=== PATIENT | female | born 1960 | race Caucasian/White ===

== ENCOUNTER 2018-07-29 06:03 | Observation (INO) | payer BC, SELFPAY ==
[2018-07-29 06:04] VITALS: BP 167/88; PULSE 94; RESP 18; TEMP 36.6; O2SAT 97; BMI 27.4
--- NOTE | 2018-07-29 06:09 | ED.RN ---
CALLED FOR EKG PER RN REQUEST, NO OLD EKGS IN MUSE
--- NOTE | 2018-07-29 06:17 | RAD_ITS ---
STUDY: X-RAY CHEST REASON FOR EXAM: Female, 57 years old. Chest and shoulder pain radiating to jaw. TECHNIQUE: Single AP portable view of the chest. COMPARISON: None. FINDINGS: There are superimposed monitor leads. Mild linear horizontal basilar interstitial changes . There is no focal parenchymal abnormality. There is no demonstrated pleural abnormality. Normal size heart. Normal mediastinum and mary. Normal visualized pulmonary arteries. Normal visualized aortic arch and descending thoracic aorta. Normal visualized thoracic spine. Normal visualized ribs, clavicles, and shoulders. There is no demonstrated abnormality of the visualized soft tissue structures of the upper abdomen. RAD/Chest 1 View (Portable) IMPRESSION: No pulmonary edema, congestive heart failure or confluent pneumonia. Possible mild atelectasis in the bases. Electronically Signed: Lou Smallwood MD at 6:46 EST , Service support ,
--- NOTE | 2018-07-29 06:17 | EKG12_ITS ---
Test Reason : CHEST PAIN Blood Pressure : / mmHG Vent. Rate : 082 BPM Atrial Rate : 082 BPM P-R Int : 156 ms QRS Dur : 090 ms QT Int : 384 ms P-R-T Axes : 047 000 048 degrees QTc Int : 448 ms Normal sinus rhythm Possible Left atrial enlargement Borderline ECG Confirmed by MALKA CEJA, GITA ([id number]), newspaper copy editor DIPTI CERON ([id number]) on 07/30/2018 11:23:11 AM Referred By: JELANI Confirmed By:GITA ACE MD
[2018-07-29 06:26] LABS: Absolute Lymphocyte Count 2.92 X10^3/ul (0.83-4.51); Absolute Neutrophil Count 2.9 X10^3/uL (2.0-7.7); Basophil# 0.06 X10^3/uL; Basophil% 0.9 % (0-1); Eosinophil# 0.18 X10^3/uL; Eosinophils% 2.8 % (0-5); Hematocrit 42.1 % (37-47); Hemoglobin 14.2 g/dl (12.0-15.0); Lymphocyte # 2.92 X10^3/ul (4.0); Lymphocyte % 45.1 % (19-41); Mean Corp Hgb Conc 33.7 g/gl (32-36); Mean Corpuscular Hgb 30.3 pg (27.0-32.0); Mean Corpuscular Volume 89.8 fL (81-99); Mean Platelet Vol. 9.3 fl (6.2-12.0); Monocyte# 0.41 X10^3/uL; Monocyte% 6.3 % (0-10); Neutrophil % 44.7 % (47-70); Platelet Count 309 K/mm3 (150-450); RBC Distribution Width CV 12.4 % (11.6-14.6); RBC Distribution Width SD 40.3 fl (35.1-43.9); Red Blood Count 4.69 M/mm3 (4.2-5.4); White Blood Count 6.5 K/mm3 (4.4-11.0)
[2018-07-29 06:32] LABS: POSITIVE COUNT NO; POSITIVE DIFFERENTIAL NO; POSITIVE MORPHOLOGY NO
[2018-07-29 06:40] LABS: Anion Gap 10 (5-15); BUN 13 mg/dL (7-18); BUN/Creat Ratio 16.9 RATIO (10-20); Calcium,Total 8.5 mg/dL (8.5-10.1); Chloride 107 mmol/L (98-107); Creatinine, Serum 0.77 mg/dL (0.55-1.02); EST Glomerular Filtration Rate 82 mL/min (>60); Est Glom Filt Rate - Afr Amer 99 mL/min (>60); Estimated Creatinine Clearance 75.46 ml/min; Glucose 118 mg/dL (74-106); Potassium 3.6 mmol/L (3.5-5.1); Sodium Level 142 mmol/L (136-145)
--- NOTE | 2018-07-29 07:01 | ED.VISSUMM ---
- ER Visit Summary Date of Service: 07/29/18 Chief Complaint: Chest pain History of Present Illness: The patient is a 57 F with chest pain that started around 5 AM this morning. It woke her up from sleep. She felt a throbbing in her left upper chest and it radiated into her left neck and left shoulder blade. It was 7 out of 10 and is currently only mild. Nothing seemed to bring on or make it worse. Nothing seemed to make it better. She did take a full-strength aspirin. She has not been to a doctor for many years. She thinks she might have a history of high blood pressure but she is not treated. She does not smoke. She has a strong family history of myocardial infarction. Her grandfather had an WV at age 50 and her dad had an WV at the age of 67. She denies any history of venous thromboembolism or aortic disease. She has never had a stress test or cardiac catheterization. Physical Examination: Afebrile. Blood pressure 167/88. Otherwise vitals unremarkable. Alert and oriented. No acute distress. Skin normal in color without diaphoresis or pallor. Heart regular rate and rhythm. Lungs clear. Extremities nontender with no edema. Test Results: EKG shows sinus rhythm at a rate of 82. No signs of acute ischemia or infarction pattern. CBC normal. Glucose 118. Troponin normal. Chest x-ray showed nothing acute, but possible mild atelectasis at the bases. Emergency Department Course and Treatment: Patient was placed on the monitor. She did have aspirin prior to arrival. Her pain had subsided somewhat by the time she got to the emergency department. Her workup was fairly unremarkable. Patient has a moderately suspicious story. She has a strong family history for heart disease. She does not have personal risk factors, but also has not been to a physician for many years, and so it is difficult to risk stratify her. Given her concerning story and family history, I did contact the hospitalist for observation for chest pain. Treatment Plan: As above Disposition: Admission Impression: 1. Chest pain This note was generated with [employer] dictation software. It may contain incorrect words, spelling, and punctuation that were not noted in review of the chart prior to signing ED Disposition - Plan for ED Patient: Chief Complaint: Chest Pain Referrals: Darshana Espinal MD [Primary Care Provider] -
--- NOTE | 2018-07-29 07:05 | ED.DCSUM_ITS ---
- ER Visit Summary Date of Service: 07/29/18 Chief Complaint: Chest pain History of Present Illness: The patient is a 57 F with chest pain that started around 5 AM this morning. It woke her up from sleep. She felt a throbbing in her left upper chest and it radiated into her left neck and left shoulder blade. It was 7 out of 10 and is currently only mild. Nothing seemed to bring on or make it worse. Nothing seemed to make it better. She did take a full-strength aspirin. She has not been to a doctor for many years. She thinks she might have a history of high blood pressure but she is not treated. She does not smoke. She has a strong family history of myocardial infarction. Her grandfather had an AL at age 50 and her dad had an AL at the age of 67. She denies any history of venous thromboembolism or aortic disease. She has never had a stress test or cardiac catheterization. Physical Examination: Afebrile. Blood pressure 167/88. Otherwise vitals unremarkable. Alert and oriented. No acute distress. Skin normal in color without diaphoresis or pallor. Heart regular rate and rhythm. Lungs clear. Extremities nontender with no edema. Test Results: EKG shows sinus rhythm at a rate of 82. No signs of acute ischemia or infarction pattern. CBC normal. Glucose 118. Troponin normal. Chest x-ray showed nothing acute, but possible mild atelectasis at the bases. Emergency Department Course and Treatment: Patient was placed on the monitor. She did have aspirin prior to arrival. Her pain had subsided somewhat by the time she got to the emergency department. Her workup was fairly unremarkable. Patient has a moderately suspicious story. She has a strong family history for heart disease. She does not have personal risk factors, but also has not been to a physician for many years, and so it is difficult to risk stratify her. Given her concerning story and family history, I did contact the hospitalist for observation for chest pain. Treatment Plan: As above Disposition: Admission Impression: 1. Chest pain This note was generated with [employer] dictation software. It may contain incorrect words, spelling, and punctuation that were not noted in review of the chart prior to signing ED Disposition - Plan for ED Patient: Chief Complaint: Chest Pain Referrals: Darshana Espinal MD [Primary Care Provider] -
--- NOTE | 2018-07-29 07:11 | NURSING ---
DR DANIEL PALOMARES
--- NOTE | 2018-07-29 07:15 | NURSING ---
125 OBS CP DANIEL
--- NOTE | 2018-07-29 07:21 | NURSING ---
DR SANCHEZ IN PATIENT ROOM
--- NOTE | 2018-07-29 07:27 | PCM.HP.STD ---
Problem List (1) Chest pain Status: Acute (2) Elevated BP without diagnosis of hypertension Status: Acute History of Present Illness Date of Admission: 07/29/18 Chief Complaint: Neck and left shoulder pain The patient is a 57 year old F relatively good health with no medical comorbidities who presented with neck and left shoulder pain. Patient woke up suddenly on the morning of admission with feeling of her heart pounding. She felt his discomfort on the left side of her neck which later radiated down to her left shoulder. She took aspirin without much relief subsequently presented to the emergency department. Her initial set of cardiac enzymes and EKG came back remarkable given her presentation patient was admitted to a monitored bed for subsequent management. On further questioning patient denied any lightheadedness denied any shortness of breath no nausea no vomiting. Past Medical History Allergies Iodinated Contrast- Oral and IV Dye [CT] Allergy (Verified 07/29/18 06:04) Hives Home Medications: Ambulatory Orders Medication Instructions Recorded Ascorbic Acid [Vitamin C] 500 mg PO DAILY@0800 07/29/18 Zinc 50 mg PO DAILY 07/29/18 Smoking Status: Never smoker - *Family History Paternal History Items: Heart Disease Review of Systems Constitutional: Denies: Anorexia, Chills, Fever, Night Sweats, Weight Change HEENT: Denies: Head Aches, Sinus Congestion, Sinus Drainage Cardiovascular: Reports: Chest Pain, Palpitations. Denies: Orthopnea, Paroxysmal Noc. Dyspnea Respiratory: Denies: Cough, Shortness of breath at rest, Shortness of breath upon exertion, Sputum production Gastrointestinal: Denies: Abdominal Pain, Hematemesis, Hematochezia, Nausea, Melena, Vomiting Genitourinary: Denies: Dysuria, Frequency, Hematuria, Urgency Musculoskeletal: Denies: Joint Pain, Joint Tenderness Skin: Denies: Rash Neurological: Denies: Focal weakness, Numbness, Tingling Psychiatric: Denies: Homicidal Ideations, Suicidal Ideations Hematologic/ Lymphatic: Denies: Easy Bruising, Easy Bleeding VTE Information - Inpt Only VTE Present on Admission: No VTE Mechan Device Prophylaxis: Knee High YAZMIN Hose VTE Pharm Prophylaxis ordered?: Yes Patient Problems: Active and Suspected Problems Chest pain (Acute) Elevated BP without diagnosis of hypertension (Acute) Objective: GENERAL: cooperative HEENT: Atraumatic; moist oral mucosa EYES; Anicteric, Normal Conjunctiva NECK; supple, normal thyroid, no distended JVD. RESPIRATORY: Diminished to auscultation bilaterally, CARDIOVASCULAR: Regular S1 S2, no audible murmurs GI: soft, non-tender, normoactive bowel sounds, : No Renal angle tenderness; EXTREMITIES: No edema, no clubbing, no cyanosis. MUSCULOSKELETAL: No Joint Tenderness; no muscle waisting NEURO: Awake; no lateralizing signs. SKIN: No Rash PSYCH; Normal affect - Physical Exam Vital Signs Temp Pulse Resp BP Pulse Ox 97.9 F 94 18 167/88 H 97 07/29/18 06:04 07/29/18 06:04 07/29/18 06:04 07/29/18 06:04 07/29/18 06:04 Oxygen Delivery Method Room Air Weight: 77.111 kg Body Mass Index (BMI) 27.4 Laboratory Tests Past 24 Hrs 07/29/18 07/29/18 06:15 06:15 WBC 6.5 RBC 4.69 Hgb 14.2 Hct 42.1 MCV 89.8 MCH 30.3 MCHC 33.7 RDW 12.4 RDW Differential 40.3 Plt Count 309 MPV 9.3 Immature Gran % (Auto) 0.200 Neut % (Auto) 44.7 L Lymph % (Auto) 45.1 H [place] % (Auto) 6.3 Eos % (Auto) 2.8 Baso % (Auto) 0.9 Absolute Neuts (auto) 2.9 Absolute Lymphs (auto) 2.92 Total Counted Not Reportable Sodium 142 Potassium 3.6 Chloride 107 Carbon Dioxide 25.0 Anion Gap 10 BUN 13 Creatinine 0.77 Estim Creat Clear Calc 75.46 Est GFR (MDRD) Af Amer 99 Est GFR (MDRD) Non-Af 82 BUN/Creatinine Ratio 16.9 Glucose 118 H Calcium 8.5 Troponin I < 0.015 Assessment/Plan All Active Problems Chest pain (Acute) Elevated BP without diagnosis of hypertension (Acute) Patient is a 57-year-old lady presented with neck pain and left shoulder discomfort 1. 1 atypical chest pain: Admitted to monitored bed plan is rule out SD with serial cardiac enzymes patient undergo a nuclear stress test if SD is ruled out 2. Elevated blood pressure without diagnosis of attention: Patient has been admitted to monitored bed with her blood pressure is currently being monitored closely 3. History of hysterectomy 4. DVT prophylaxis SC Lovenox. Code Visit OBSV E&M: 27367 Initial observation care L3
--- NOTE | 2018-07-29 07:32 | HP.PCM_ITS ---
Problem List (1) Chest pain Status: Acute (2) Elevated BP without diagnosis of hypertension Status: Acute History of Present Illness Date of Admission: 07/29/18 Chief Complaint: Neck and left shoulder pain The patient is a 57 year old F relatively good health with no medical comorbidities who presented with neck and left shoulder pain. Patient woke up suddenly on the morning of admission with feeling of her heart pounding. She felt his discomfort on the left side of her neck which later radiated down to her left shoulder. She took aspirin without much relief subsequently presented to the emergency department. Her initial set of cardiac enzymes and EKG came back remarkable given her presentation patient was admitted to a monitored bed for subsequent management. On further questioning patient denied any light headedness denied any shortness of breath no nausea no vomiting. Past Medical History Allergies Iodinated Contrast- Oral and IV Dye [CT] Allergy (Verified 07/29/18 06:04) Hives Home Medications: Ambulatory Orders Medication Instructions Recorded Ascorbic Acid [Vitamin C] 500 mg PO DAILY@0800 07/29/18 Zinc 50 mg PO DAILY 07/29/18 Smoking Status: Never smoker - *Family History Paternal History Items: Heart Disease Review of Systems Constitutional: Denies: Anorexia, Chills, Fever, Night Sweats, Weight Change HEENT: Denies: Head Aches, Sinus Congestion, Sinus Drainage Cardiovascular: Reports: Chest Pain, Palpitations. Denies: Orthopnea, Paroxysmal Noc. Dyspnea Respiratory: Denies: Cough, Shortness of breath at rest, Shortness of breath upon exertion, Sputum production Gastrointestinal: Denies: Abdominal Pain, Hematemesis, Hematochezia, Nausea, Melena, Vomiting Genitourinary: Denies: Dysuria, Frequency, Hematuria, Urgency Musculoskeletal: Denies: Joint Pain, Joint Tenderness Skin: Denies: Rash Neurological: Denies: Focal weakness, Numbness, Tingling Psychiatric: Denies: Homicidal Ideations, Suicidal Ideations Hematologic/ Lymphatic: Denies: Easy Bruising, Easy Bleeding VTE Information - Inpt Only VTE Present on Admission: No VTE Mechan Device Prophylaxis: Knee High YAZMIN Hose VTE Pharm Prophylaxis ordered?: Yes Patient Problems: Active and Suspected Problems Chest pain (Acute) Elevated BP without diagnosis of hypertension (Acute) Objective: GENERAL: cooperative HEENT: Atraumatic; moist oral mucosa EYES; Anicteric, Normal Conjunctiva NECK; supple, normal thyroid, no distended JVD. RESPIRATORY: Diminished to auscultation bilaterally, CARDIOVASCULAR: Regular S1 S2, no audible murmurs GI: soft, non-tender, normoactive bowel sounds, : No Renal angle tenderness; EXTREMITIES: No edema, no clubbing, no cyanosis. MUSCULOSKELETAL: No Joint Tenderness; no muscle waisting NEURO: Awake; no lateralizing signs. SKIN: No Rash PSYCH; Normal affect - Physical Exam Vital Signs Temp Pulse Resp BP Pulse Ox 97.9 F 94 18 167/88 H 97 07/29/18 06:04 07/29/18 06:04 07/29/18 06:04 07/29/18 06:04 07/29/18 06:04 Oxygen Delivery Method Room Air Weight: 77.111 kg Body Mass Index (BMI) 27.4 Laboratory Tests Past 24 Hrs 07/29/18 07/29/18 06:15 06:15 WBC 6.5 RBC 4.69 Hgb 14.2 Hct 42.1 MCV 89.8 MCH 30.3 MCHC 33.7 RDW 12.4 RDW Differential 40.3 Plt Count 309 MPV 9.3 Immature Gran % (Auto) 0.200 Neut % (Auto) 44.7 L Lymph % (Auto) 45.1 H Coal % (Auto) 6.3 Eos % (Auto) 2.8 Baso % (Auto) 0.9 Absolute Neuts (auto) 2.9 Absolute Lymphs (auto) 2.92 Total Counted Not Reportable Sodium 142 Potassium 3.6 Chloride 107 Carbon Dioxide 25.0 Anion Gap 10 BUN 13 Creatinine 0.77 Estim Creat Clear Calc 75.46 Est GFR (MDRD) Af Amer 99 Est GFR (MDRD) Non-Af 82 BUN/Creatinine Ratio 16.9 Glucose 118 H Calcium 8.5 Troponin I < 0.015 Assessment/Plan All Active Problems Chest pain (Acute) Elevated BP without diagnosis of hypertension (Acute) Patient is a 57-year-old lady presented with neck pain and left shoulder discomfort 1. 1 atypical chest pain: Admitted to monitored bed plan is rule out NV with serial cardiac enzymes patient undergo a nuclear stress test if NV is ruled out 2. Elevated blood pressure without diagnosis of attention: Patient has been admitted to monitored bed with her blood pressure is currently being monitored closely 3. History of hysterectomy 4. DVT prophylaxis SC Lovenox. Code Visit OBSV E&M: 53479 Initial observation care L3
--- NOTE | 2018-07-29 08:09 | ECHOD_ITS ---
Reason For Study: CHEST PAIN Procedure This was a 2D Doppler, Color Flow transthoracic echocardiogram. Exam performed portable in patient room. Left Ventricle Normal LV size. Left ventricular systolic function is normal. The estimated ejection fraction is 70 %. Stage 1 diastolic dysfunction. No regional wall motion abnormalities noted. Right Ventricle Normal RV size. Normal systolic function. Atria Normal left atrium. Normal right atrium. Bubble contrast study negative for right to left interatrial shunt. Mitral Valve Normal mitral valve. Tricuspid Valve Normal tricuspid valve. Aortic Valve Normal aortic valve. Trisinus/trileaflet aortic valve. Pulmonic Valve Normal pulmonic valve. Great Vessels Normal aortic root. The pulmonary artery is normal size. Normal inferior vena cava. Pericardium/Pleural No pericardial effusion. Medication Performed a rapid injection of agitated mix of 9 cc saline and 1cc air to assess for atrial septal defect. MMode/2D Measurements & Calculations LVIDd: 4.2 cm IVSd: 1.2 cm Ao root diam: 3.3 cm LVIDs: 2.9 cm LVPWd: 1.1 cm RVDd: 3.3 cm FS: 31.9 % LAV(MOD-bp): 45.7 ml LA A4 area: 15.2 cm2 LA dimension(2D): 3.7 cm LAV(MOD-bp) Indexed: 24.5 ml/m2 LAV(MOD-sp2): 50.4 ml LAV(MOD-sp4): 38.6 ml RA A4 area: 15.0 cm2 Time Measurements MV dec time: 0.22 sec Doppler Measurements & Calculations MV E max torrey: 72.2 cm/sec Lat Peak E' Torrey: 12.0 cm/sec Med Peak E' Torrey: 9.1 cm/sec MV A max torrey: 92.5 cm/sec E/E' lat: 6.0 E/E' med: 7.9 MV E/A: 0.78 Ao V2 max: 166.0 cm/sec LV V1 max: 148.2 cm/sec PA V2 max: 114.4 cm/sec Ao max P.0 mmHg LV V1 max P.8 mmHg Interpretation Summary Normal LV size. Left ventricular systolic function is normal. The estimated ejection fraction is 70 %. Stage 1 diastolic dysfunction. Bubble contrast study negative for right to left interatrial shunt. Ordering Physician: Adilson Sanz Referring Physician: Darshana Espinal Performed By: Itzel Jiménez, ROB, RVT
[2018-07-29 08:17] VITALS: BMI 27.6
[2018-07-29 08:29] VITALS: BMI 27.7
[2018-07-29 08:40] VITALS: BP 132/79; PULSE 83; RESP 14; TEMP 37.2; O2SAT 96
[2018-07-29 08:42] VITALS: PULSE 80
[2018-07-29 09:05] LABS: D-Dimer Quantitative (DVT/PE) < 0.27 FEU/ug/m (0.27-0.49)
[2018-07-29 09:09] LABS: AST(SGOT) 22 U/L (15-37); Alanine Aminotransfer ALT/SGPT 39 U/L (13-56); Albumin, Serum 3.8 g/dL (3.2-5.0); Alkaline Phosphatase 84 U/L (45-117); Bilirubin, Direct 0.11 mg/dL (0.00-0.30); Cholesterol 254 mg/dL (200); High Density Lipoprotein 53 mg/dL; Protein, Total 7.8 g/dL (6.4-8.2); Thyroid Stim Hormone (TSH) 3.15 uIU/mL (0.358-3.74); Triglycerides 108 mg/dL; Very Low Density Lipoprotein 22 mg/dL (5-40)
[2018-07-29 13:18] VITALS: PULSE 80
[2018-07-29 14:53] VITALS: BP 121/78; PULSE 75; RESP 12; TEMP 37.3; O2SAT 98
[2018-07-29 15:25] VITALS: PULSE 80
--- NOTE | 2018-07-29 15:28 | STRESSREP_ITS ---
Stress Test Report Exercise myocardial perfusion stress test. 57-year-old lady with a history of chest pain. Stress protocol: Resting EKG demonstrates normal sinus rhythm with a rate of 98/min normal intervals are noted resting blood pressure 142/80 mmHg. The patient exercised according to the regular [facility] protocol for total duration of 5 minutes. The maximum heart rate attained was 171 bpm which was 104% of maximum predicted heart rate the maximum workload attained was 7 metabolic equivalents. At rest there were no ST or T wave changes noted suggest ischemia peak exercise upsloping ST changes were noted with normally the criteria for ischemia. No clinical angina was noted. The resting blood pressure 142/80 mmHg with a peak blood pressure 204/80 mmHg. Rate pressure product was 34,800. The test was terminated due to leg fatigue. Myocardial perfusion protocol. 11.5 mCi of technetium 99m sestamibi was injected at rest. The patient exerc ised according to regular [facility] protocol for total duration of 5 minutes at peak exercise 33.2 mCi of technetium 99m sestamibi was injected stress images were obtained stress and rest images were reconstructed and compared in the short axis vertical long and horizontal long axis. Gated images were also obtained Diffusion SPECT analysis: Review of the stress images demonstrate normal uptake of tracer noted in all areas of the myocardium. The resting images similarly demonstrated normal uptake of tracer noted in all areas of the myocardium. No areas of reversibility were noted suggest ischemia. Gated SPECT analysis. Next the gated ejection fraction was noted to be 82%. Conclusion: Normal exercise myocardial perfusion stress test at a moderate workload. Preserved ejection fraction.
--- NOTE | 2018-07-29 15:57 | DS.PCM_ITS ---
Discharge Date and Diagnosis - Problem List Patient Problems: Active and Suspected Problems Chest pain (Acute) Elevated BP without diagnosis of hypertension (Acute) Date of Admission: 07/29/18 - Primary Discharge Diagnosis Active and Suspected Problems Chest pain (Acute) Elevated BP without diagnosis of hypertension (Acute) Hospital Course and Treatment Imaging Results: 07/29/18 08:09 Echo Complete [ECHO] Routine Nuclear Stress Test - Treadmil [NM] Routine Summary of Care Provided: The patient is a 57 year old F [] Patient Problems: Active and Suspected Problems Chest pain (Acute) Elevated BP without diagnosis of hypertension (Acute) - Physical Exam Vital Signs Temp Pulse Resp BP Pulse Ox 99.2 F H 80 12 121/78 H 98 07/29/18 14:53 07/29/18 15:25 07/29/18 14:53 07/29/18 14:53 07/29/18 14:53 Oxygen Delivery Method Room Air Weight: 77.8 kg Body Mass Index (BMI) 27.6 Laboratory Tests Past 24 Hrs 07/29/18 07/29/18 07/29/18 06:15 06:15 06:15 WBC 6.5 RBC 4.69 Hgb 14.2 Hct 42.1 MCV 89.8 MCH 30.3 MCHC 33.7 RDW 12.4 RDW Differential 40.3 Plt Count 309 MPV 9.3 Immature Gran % (Auto) 0.200 Neut % (Auto) 44.7 L Lymph % (Auto) 45.1 H [place] % (Auto) 6.3 Eos % (Auto) 2.8 Baso % (Auto) 0.9 Absolute Neuts (auto) 2.9 Absolute Lymphs (auto) 2.92 Total Counted Not Reportable D-Dimer Quant (PE/DVT) < 0.27 L Sodium 142 Potassium 3.6 Chloride 107 Carbon Dioxide 25.0 Anion Gap 10 BUN 13 Creatinine 0.77 Estim Creat Clear Calc 75.46 Est GFR (MDRD) Af Amer 99 Est GFR (MDRD) Non-Af 82 BUN/Creatinine Ratio 16.9 Glucose 118 H Calcium 8.5 Total Bilirubin Direct Bilirubin AST ALT Alkaline Phosphatase Troponin I < 0.015 Total Protein Albumin Globulin Triglycerides Cholesterol LDL Cholesterol VLDL Cholesterol HDL Cholesterol TSH 07/29/18 07/29/18 07/29/18 06:15 09:06 12:10 WBC RBC Hgb Hct MCV MCH MCHC RDW RDW Differential Plt Count MPV Immature Gran % (Auto) Neut % (Auto) Lymph % (Auto) [place] % (Auto) Eos % (Auto) Baso % (Auto) Absolute Neuts (auto) Absolute Lymphs (auto) Total Counted D-Dimer Quant (PE/DVT) Sodium Potassium Chloride Carbon Dioxide Anion Gap BUN Creatinine Estim Creat Clear Calc Est GFR (MDRD) Af Amer Est GFR (MDRD) Non-Af BUN/Creatinine Ratio Glucose Calcium Total Bilirubin 0.50 Direct Bilirubin 0.11 AST 22 ALT 39 Alkaline Phosphatase 84 Troponin I < 0.015 < 0.015 Total Protein 7.8 Albumin 3.8 Globulin 4.0 Triglycerides 108 Cholesterol 254 H LDL Cholesterol 179 H VLDL Cholesterol 22 HDL Cholesterol 53 TSH 3.15 Home Medications: Medications to take at Discharge Amlodipine [Norvasc] 5 mg PO DAILY #60 tablet 07/29/18 Ascorbic Acid [Vitamin C] 500 mg PO DAILY@0800 07/29/18 Atorvastatin Calcium [Lipitor] 40 mg PO DAILY #60 tablet 07/29/18 Mv-Mn/Folic Acid/Calcium/Vit K [Women's 50 Plus Daily Formula] 1 each PO DAILY 07/29/18 Zinc 50 mg PO DAILY 07/29/18 Following Prescrptions Were Given to Patient: Amlodipine [Norvasc] 5 mg PO DAILY #60 tablet Atorvastatin Calcium [Lipitor] 40 mg PO DAILY #60 tablet Primary Care Physician: Darshana Espinal MD [Primary Care Provider] - Medical Necessity - Tobacco Use Smoking Status: Never smoker
--- NOTE | 2018-07-29 15:58 | DCINST_ITS ---
- Discharge Diagnoses Current Active Problems: Current Active and Chronic Problems Chest pain (Acute) Elevated BP without diagnosis of hypertension (Acute) You will use the following diet at home:: Cardiac Instructions: ED Chest Pain NonCardiac Allergies/Adverse Reactions: Allergies Iodinated Contrast- Oral and IV Dye [CT] Allergy (Verified 07/29/18 06:04) Hives Medications to take at Discharge Amlodipine [Norvasc] 5 mg PO DAILY #60 tablet 07/29/18 Ascorbic Acid [Vitamin C] 500 mg PO DAILY@0800 07/29/18 Atorvastatin Calcium [Lipitor] 40 mg PO DAILY #60 tablet 07/29/18 Mv-Mn/Folic Acid/Calcium/Vit K [Women's 50 Plus Daily Formula] 1 each PO DAILY 07/29/18 Zinc 50 mg PO DAILY 07/29/18 The following prescriptions were given: Amlodipine [Norvasc] 5 mg PO DAILY #60 tablet Atorvastatin Calcium [Lipitor] 40 mg PO DAILY #60 tablet Primary Care Physician: Darshana Espinal MD [Primary Care Provider] - Please follow up with your Primary Care Physician in: in 1-2 weeks Test Results: Test results from this visit will be discussed in further detail at your follow- up appointment, if applicable. Proposed Discharge Date: 07/29/18
--- NOTE | 2018-07-29 16:01 | DS.PCM_ITS ---
Discharge Date and Diagnosis - Problem List Patient Problems: Active and Suspected Problems Chest pain (Acute) Elevated BP without diagnosis of hypertension (Acute) Date of Admission: 07/29/18 Date of Discharge: 07/29/18 - Primary Discharge Diagnosis Active and Suspected Problems Chest pain (Acute) Elevated BP without diagnosis of hypertension (Acute) - Secondary Discharge Diagnosis Essential hypertension Dyslipidemia History of hysterectomy Hospital Course and Treatment Imaging Results: 07/29/18 08:09 Echo Complete [ECHO] Routine Nuclear Stress Test - Treadmil [NM] Routine Laboratory Tests 07/29/18 07/29/18 07/29/18 Range/Units 12:10 09:06 06:15 WBC (4.4-11.0) K/mm3 RBC (4.2-5.4) M/mm3 Hgb (12.0-15.0) g/dl Hct (37-47) % MCV (81-99) fL MCH (27.0-32.0) pg MCHC (32-36) g/gl RDW (11.6-14.6) % RDW Differential (35.1-43.9) fl Plt Count (150-450) K/mm3 MPV (6.2-12.0) fl Immature Gran % (Auto) (0.0-0.9) % Neut % (Auto) (47-70) % Lymph % (Auto) (19-41) % [place] % (Auto) (0-10) % Eos % (Auto) (0-5) % Baso % (Auto) (0-1) % Absolute Neuts (auto) (2.0-7.7) X10^3/uL Absolute Lymphs (auto) (0.83-4.51) X10^3/ul Total Counted D-Dimer Quant (PE/DVT) (0.27-0.49) FEU/ug/m Sodium (136-145) mmol/L Potassium (3.5-5.1) mmol/L Chloride (98-107) mmol/L Carbon Dioxide (21.0-32.0) mmol/L Anion Gap (5-15) BUN (7-18) mg/dL Creatinine (0.55-1.02) mg/dL Estim Creat Clear Calc ml/min Est GFR (MDRD) Af Amer (>60) mL/min Est GFR (MDRD) Non-Af (>60) mL/min BUN/Creatinine Ratio (10-20) RATIO Glucose (74-106) mg/dL Calcium (8.5-10.1) mg/dL Total Bilirubin 0.50 (0.20-1.00) mg/dL Direct Bilirubin 0.11 (0.00-0.30) mg/dL AST 22 (15-37) U/L ALT 39 (13-56) U/L Alkaline Phosphatase 84 (45-117) U/L Troponin I < 0.015 < 0.015 (<0.045) ng/mL Total Protein 7.8 (6.4-8.2) g/dL Albumin 3.8 (3.2-5.0) g/dL Globulin 4.0 (2.2-4.2) g/dL Triglycerides 108 ( - 199) mg/dL Cholesterol 254 H (200) mg/dL LDL Cholesterol 179 H (0-130) mg/dL VLDL Cholesterol 22 (5-40) mg/dL HDL Cholesterol 53 (40 - ) mg/dL TSH 3.15 (0.358-3.74) uIU/mL 07/29/18 07/29/18 07/29/18 Range/Units 06:15 06:15 06:15 WBC 6.5 (4.4-11.0) K/mm3 RBC 4.69 (4.2-5.4) M/mm3 Hgb 14.2 (12.0-15.0) g/dl Hct 42.1 (37-47) % MCV 89.8 (81-99) fL MCH 30.3 (27.0-32.0) pg MCHC 33.7 (32-36) g/gl RDW 12.4 (11.6-14.6) % RDW Differential 40.3 (35.1-43.9) fl Plt Count 309 (150-450) K/mm3 MPV 9.3 (6.2-12.0) fl Immature Gran % (Auto) 0.200 (0.0-0.9) % Neut % (Auto) 44.7 L (47-70) % Lymph % (Auto) 45.1 H (19-41) % [place] % (Auto) 6.3 (0-10) % Eos % (Auto) 2.8 (0-5) % Baso % (Auto) 0.9 (0-1) % Absolute Neuts (auto) 2.9 (2.0-7.7) X10^3/uL Absolute Lymphs (auto) 2.92 (0.83-4.51) X10^3/ul Total Counted Not Reportable D-Dimer Quant (PE/DVT) < 0.27 L (0.27-0.49) FEU/ug/m Sodium 142 (136-145) mmol/L Potassium 3.6 (3.5-5.1) mmol/L Chloride 107 (98-107) mmol/L Carbon Dioxide 25.0 (21.0-32.0) mmol/L Anion Gap 10 (5-15) BUN 13 (7-18) mg/dL Creatinine 0.77 (0.55-1.02) mg/dL Estim Creat Clear Calc 75.46 ml/min Est GFR (MDRD) Af Amer 99 (>60) mL/min Est GFR (MDRD) Non-Af 82 (>60) mL/min BUN/Creatinine Ratio 16.9 (10-20) RATIO Glucose 118 H (74-106) mg/dL Calcium 8.5 (8.5-10.1) mg/dL Total Bilirubin (0.20-1.00) mg/dL Direct Bilirubin (0.00-0.30) mg/dL AST (15-37) U/L ALT (13-56) U/L Alkaline Phosphatase (45-117) U/L Troponin I < 0.015 (<0.045) ng/mL Total Protein (6.4-8.2) g/dL Albumin (3.2-5.0) g/dL Globulin (2.2-4.2) g/dL Triglycerides ( - 199) mg/dL Cholesterol (200) mg/dL LDL Cholesterol (0-130) mg/dL VLDL Cholesterol (5-40) mg/dL HDL Cholesterol (40 - ) mg/dL TSH (0.358-3.74) uIU/mL Summary of Care Provided: Patient is a 57-year-old lady presented with neck pain and left shoulder discomfort 1. Atypical chest pain: Admitted to monitored bed plan did rule out OR with serial cardiac enzymes patient subsequently underwent a nuclear stress test which was negative for stress-induced ischemia 2. Hypertension: Newly diagnosed patient was discharged home on amlodipine 5 mg daily 3. Dyslipidemia: New diagnosis; prescription was written 10 4 Lipitor 40 mg daily patient was encouraged was counseled on lifestyle modification including exercise and diet 4. History of hysterectomy 5. DVT prophylaxis SC Lovenox. Patient Problems: Active and Suspected Problems Chest pain (Acute) Elevated BP without diagnosis of hypertension (Acute) - Physical Exam General: Alert HEENT: Atraumatic Oral: Moist Mucosa Neck: No JVD Cardiovascular: Regular rate Neurological: Neuro grossly intact Vital Signs Temp Pulse Resp BP Pulse Ox 99.2 F H 80 12 121/78 H 98 07/29/18 14:53 07/29/18 15:25 07/29/18 14:53 07/29/18 14:53 07/29/18 14:53 Oxygen Delivery Method Room Air Weight: 77.8 kg Body Mass Index (BMI) 27.6 Laboratory Tests Past 24 Hrs 07/29/18 07/29/18 07/29/18 06:15 06:15 06:15 WBC 6.5 RBC 4.69 Hgb 14.2 Hct 42.1 MCV 89.8 MCH 30.3 MCHC 33.7 RDW 12.4 RDW Differential 40.3 Plt Count 309 MPV 9.3 Immature Gran % (Auto) 0.200 Neut % (Auto) 44.7 L Lymph % (Auto) 45.1 H [place] % (Auto) 6.3 Eos % (Auto) 2.8 Baso % (Auto) 0.9 Absolute Neuts (auto) 2.9 Absolute Lymphs (auto) 2.92 Total Counted Not Reportable D-Dimer Quant (PE/DVT) < 0.27 L Sodium 142 Potassium 3.6 Chloride 107 Carbon Dioxide 25.0 Anion Gap 10 BUN 13 Creatinine 0.77 Estim Creat Clear Calc 75.46 Est GFR (MDRD) Af Amer 99 Est GFR (MDRD) Non-Af 82 BUN/Creatinine Ratio 16.9 Glucose 118 H Calcium 8.5 Total Bilirubin Direct Bilirubin AST ALT Alkaline Phosphatase Troponin I < 0.015 Total Protein Albumin Globulin Triglycerides Cholesterol LDL Cholesterol VLDL Cholesterol HDL Cholesterol TSH 07/29/18 07/29/18 07/29/18 06:15 09:06 12:10 WBC RBC Hgb Hct MCV MCH MCHC RDW RDW Differential Plt Count MPV Immature Gran % (Auto) Neut % (Auto) Lymph % (Auto) [place] % (Auto) Eos % (Auto) Baso % (Auto) Absolute Neuts (auto) Absolute Lymphs (auto) Total Counted D-Dimer Quant (PE/DVT) Sodium Potassium Chloride Carbon Dioxide Anion Gap BUN Creatinine Estim Creat Clear Calc Est GFR (MDRD) Af Amer Est GFR (MDRD) Non-Af BUN/Creatinine Ratio Glucose Calcium Total Bilirubin 0.50 Direct Bilirubin 0.11 AST 22 ALT 39 Alkaline Phosphatase 84 Troponin I < 0.015 < 0.015 Total Protein 7.8 Albumin 3.8 Globulin 4.0 Triglycerides 108 Cholesterol 254 H LDL Cholesterol 179 H VLDL Cholesterol 22 HDL Cholesterol 53 TSH 3.15 Discharge Diet: Low fat/ Low Cholesterol Home Medications: Medications to take at Discharge Amlodipine [Norvasc] 5 mg PO DAILY #60 tablet 07/29/18 Ascorbic Acid [Vitamin C] 500 mg PO DAILY@0800 07/29/18 Atorvastatin Calcium [Lipitor] 40 mg PO DAILY #60 tablet 07/29/18 Mv-Mn/Folic Acid/Calcium/Vit K [Women's 50 Plus Daily Formula] 1 each PO DAILY 07/29/18 Zinc 50 mg PO DAILY 07/29/18 Following Prescrptions Were Given to Patient: Amlodipine [Norvasc] 5 mg PO DAILY #60 tablet Atorvastatin Calcium [Lipitor] 40 mg PO DAILY #60 tablet Primary Care Physician: Darshana Espinal MD [Primary Care Provider] - Please follow up with your Primary Care Physician in: in 1-2 weeks Patient Instructions: ED Chest Pain NonCardiac Disposition: Home Minutes spent on discharge:: 45 Patient Condition:: Stable Medical Necessity - Tobacco Use Smoking Status: Never smoker Meaningful Use Info Meaningful Use Diagnoses (Choose all that apply): None applicable Code Visit OBSV E&M: 04121 Observ/hosp same date L3
== END 2018-07-29 15:58 | disposition home or self-care (01) ==
LOC: ED 06:29 → PCU 07:20
PROVIDERS: Admitting Provider Internal Medicine; Emergency Provider Emergency Medicine; Family Provider Family Medicine; PCP Family Medicine; Visit Provider Internal Medicine
DX: R07.89 Other chest pain (principal); Z82.49 Family history of ischemic heart disease and other diseases of the circulatory system; M54.2 Cervicalgia; M25.512 Pain in left shoulder; E78.5 Hyperlipidemia, unspecified; I10 Essential (primary) hypertension
CPT/HCPCS: 36415; 71045; 78452; 80048; 80061; 80076; 84443; 84484; 85025; 85379; 93005; 93017; 93306; 99218; 99251; 99284; A9500; A4216; G0378; G0463

== ENCOUNTER → 2018-09-23 08:18 | Outpatient (CLI) | payer BC, SELFPAY ==
--- NOTE | 2018-09-23 08:21 | BI_ITS ---
MAMMOGRAPHY - BILATERAL SCREENING REASON FOR EXAM: Female, 57 years old. Routine annual screening examination. PERTINENT HISTORY: Mother with breast cancer. Remote right stereotactic breast biopsy. TECHNIQUE: Digital bilateral breast olena (3D mammographic acquisition) in the CC and MLO projections. 2-D mediolateral oblique (MLO) and craniocaudad (CC) views of both breasts were obtained. CAD: Full Field Digital Mammography with Computer Added Detection was performed. COMPARISON: Comparison is made with prior examination dated July 26, 2015 and July 12, 2014. FINDINGS: Breast Composition: The breasts are heterogeneously dense, which may obscure small masses. There are no dominant masses or suspicious calcifications. A tissue clip marker is once again seen in the partially calcified 1 cm x 1.2 cm nodule in the deep upper midportion of the right breast. This is unchanged. Stable small bilateral axillary lymph nodes. No other significant abnormalities are identified. There has been no significant change since the prior study. BI/SCREENING MAMM (CAD), BILAT IMPRESSION: Stable bilateral screening mammogram. Yearly follow-up mammogram recommended. (A) ASSESSMENT CATEGORY: BIRADS Category 2: Benign. A letter regarding these results will be sent to the patient by the facility within 30 days. Approximately 10% of breast cancers are not detected by mammography. A normal mammogram should not delay biopsy of a clinically suspicious abnormality. [id number] Electronically Signed: Hector Buck MD at 15:31 EST Tel [phone], Service support ,
== END ==
PROVIDERS: Family Provider Family Medicine; PCP Family Medicine; Referring Provider Family Medicine; Visit Provider Family Medicine
DX: Z12.31 Encounter for screening mammogram for malignant neoplasm of breast (principal)
CPT/HCPCS: 77063; 77067

== ENCOUNTER → 2019-09-11 12:04 | Outpatient (CLI) | payer BC, SELFPAY ==
--- NOTE | 2019-09-11 12:08 | RAD_ITS ---
STUDY: X-RAY CHEST REASON FOR EXAM: Female, 58 years old. Cough. Recently, posterior shoulder pain and fever now TECHNIQUE: Frontal and lateral views of the chest. COMPARISON: 07/29/2018. FINDINGS: The lungs are clear and expanded. There is no demonstrated pleural abnormality. Normal size heart. Normal mediastinum and mary. Normal visualized pulmonary arteries. Normal visualized aortic arch and descending thoracic aorta. Normal visualized thoracic spine. Normal visualized ribs, clavicles, and shoulders. There is no demonstrated abnormality of the visualized soft tissue structures of the upper abdomen. RAD/Chest PA and Lateral IMPRESSION: Normal x-ray examination of the chest. Electronically Signed: Baldev Brizuela MD at 0:01 EST , Service support ,
== END ==
PROVIDERS: Family Provider Family Medicine; PCP Family Medicine; Referring Provider Family Medicine; Visit Provider Family Medicine
DX: R05 Cough (principal)
CPT/HCPCS: 71046

== ENCOUNTER → 2019-11-02 13:50 | Outpatient (CLI) | payer BC, SELFPAY ==
[2019-11-02 15:27] LABS: AST(SGOT) 23 U/L (15-37); Alanine Aminotransfer ALT/SGPT 41 U/L (13-56); Anion Gap 7 (5-15); BUN 11 mg/dL (7-18); BUN/Creat Ratio 13.5 RATIO (10-20); Calcium,Total 8.9 mg/dL (8.5-10.1); Chloride 107 mmol/L (98-107); Cholesterol 136 mg/dL (200); Creatinine, Serum 0.81 mg/dL (0.55-1.02); EST Glomerular Filtration Rate 77 mL/min (>60); Est Glom Filt Rate - Afr Amer 93 mL/min (>60); Glucose 89 mg/dL (74-106); High Density Lipoprotein 50 mg/dL; Potassium 3.6 mmol/L (3.5-5.1); Sodium Level 142 mmol/L (136-145); Triglycerides 125 mg/dL; Very Low Density Lipoprotein 25 mg/dL (5-40)
== END ==
PROVIDERS: PCP Family Medicine; Referring Provider Family Medicine; Visit Provider Family Medicine
DX: I10 Essential (primary) hypertension (principal); E78.5 Hyperlipidemia, unspecified
CPT/HCPCS: 36415; 80048; 80061; 84450; 84460

== ENCOUNTER → 2019-11-12 15:10 | Outpatient (CLI) | payer BC, SELFPAY ==
--- NOTE | 2019-11-12 15:13 | BI_ITS ---
MAMMOGRAPHY - BILATERAL SCREENING REASON FOR EXAM: Female, 58 years old. Routine annual screening examination. PERTINENT HISTORY: Mother with breast cancer. TECHNIQUE: Digital bilateral breast maria l (3D mammographic acquisition) in the CC and MLO projections. 2-D mediolateral oblique (MLO) and craniocaudad (CC) views of both breasts were obtained. CAD: Full Field Digital Mammography with Computer Added Detection was performed. COMPARISON: Comparison is made with prior study dated September 23, 2018 and July 26, 2015. FINDINGS: Breast Composition: The breasts are heterogeneously dense, which may obscure small masses. There is a 2 cm x 2.1 cm well-defined nodule in the upper lateral portion of the left breast. Correlation with ultrasound is recommended. Stable partially calcified nodule in the upper central portion of the right breast with a tissue clip marker within it. Stable benign-appearing bilateral axillary lymph nodes. No other significant abnormalities are identified. BI/SCREEN MAMM (CAD) W/MARIA L BILAT IMPRESSION: 2 cm x 2.1 cm well-defined nodule in the upper lateral portion of the left breast as described. Correlation with ultrasound is recommended. ASSESSMENT CATEGORY: BIRADS Category 0: Incomplete. Need additional imaging evaluation. A letter regarding these results will be sent to the patient by the facility within 30 days. Approximately 10% of breast cancers are not detected by mammography. A normal mammogram should not delay biopsy of a clinically suspicious abnormality. [id number] Electronically Signed: Hector Buck, at 9:26 EST , Service support ,
--- NOTE | 2019-11-12 15:20 | BD_ITS ---
STUDY: DUAL ENERGY X-RAY ABSORPTIOMETRY / DXA REASON FOR EXAM: Female, 58 years old. Total hysterectomy age 48. Pat is 157.2# and 65 and quot; a loss of 1'' per pat. Takes a multi-vit. Does not exercise. TECHNIQUE: Bone Mineral Density (BMD) measurements of lumbar spine and bilateral hips were obtained. COMPARISON: None. FINDINGS: Lumbar Spine (L1-L4): g/cm2 (1.003) / T-score (-1.5) / Z-score (-0.4) Findings are suggestive of osteopenia with a low fracture risk. Left Femur Total: g/cm2 (0.918) / T-score (-0.7) / Z-score (0.1) Left Femoral Neck: g/cm2 (0.901) / T-score (-1.0) / Z-score (0.2) Right Femur Total: g/cm2 (0.907) / T-score (-0.8) / Z-score (0.1) Right Femoral Neck: g/cm2 (0.848) / T-score (-1.4) / Z-score (-0.2) BD/Dexa Bone Density Study IMPRESSION: The patient is considered osteopenic as outlined below according to World Idris Organization (WHO) criteria with a low fracture risk. Reference Information: The T-score is the number of standard deviations above or below the standard which is normal for young adults at their peak bone mineral density. The World Health Organization (WHO) interprets the T-scores as follows: Above -1 Normal bone density Between -1 and -2.5 Osteopenia Equal to / or below -2.5 Osteoporosis As a practical clinical guideline, osteopenia may be graded as follows: Mild -1 through -1.5 Moderate -1.6 through -2.0 Severe -2.1 through -2.4 The Z-score is the number of standard deviations above or below age-matched controls. A Z-score of less than -1.5 would be considered abnormal. References: 1. NIH Osteoporosis and Related Bone Diseases http://www.osteo.org 2. International Society for Clinical Densitometry http://www.iscd.org 3. National Osteoporosis Foundation http://www.nof.org Electronically Signed: Hector Buck, at 15:02 EST , Service support ,
== END ==
PROVIDERS: PCP Family Medicine; Referring Provider Family Medicine; Visit Provider Family Medicine
DX: E28.319 Asymptomatic premature menopause (principal); Z12.31 Encounter for screening mammogram for malignant neoplasm of breast; N63.20 Unspecified lump in the left breast, unspecified quadrant; Z80.3 Family history of malignant neoplasm of breast
CPT/HCPCS: 77063; 77067; 77080

== ENCOUNTER → 2019-11-17 12:54 | Outpatient (CLI) | payer BC, SELFPAY ==
--- NOTE | 2019-11-17 12:57 | US_ITS ---
STUDY: ULTRASOUND BREAST - LEFT REASON FOR EXAM: Female, 58 years old. Abnormal screening mammogram. TECHNIQUE: Axial and longitudinal images of the LEFT breast were performed with a high resolution ultrasound transducer. # OF IMAGES: 47 COMPARISON: Comparison is made with prior mammogram dated November 12, 2019. FINDINGS: LEFT Breast: The mammographic abnormality corresponds to a 2.3 cm x 1.9 cm x 1.1 cm irregular hypoechoic nodule at the 1:30 position of the breast at 5 cm from the nipple. A biopsy is recommended. US/Breast Limited Unilateral IMPRESSION: Suspicious nodule at the 1:30 position of the breast at 5 cm from nipple. A biopsy is recommended. ASSESSMENT CATEGORY: BIRADS Category 4: Suspicious - Biopsy Should Be Considered. A letter regarding these results will be sent to the patient by the facility within 30 days. Electronically Signed: Hector Buck, at 15:41 EDT , Service support ,
== END ==
PROVIDERS: PCP Family Medicine; Referring Provider Family Medicine; Visit Provider Family Medicine
DX: N63.21 Unspecified lump in the left breast, upper outer quadrant (principal)
CPT/HCPCS: 76642

== ENCOUNTER → 2019-12-14 11:35 | Outpatient (CLI) | payer BC, SELFPAY ==
[2019-12-11 08:35] VITALS: BMI 27.6
--- NOTE | 2019-12-14 11:40 | US_ITS ---
STUDY: ULTRASOUND BREAST - LEFT REASON FOR EXAM: Female, 59 years old. Left breast biopsy. TECHNIQUE: Axial and longitudinal images of the LEFT breast were performed with a high resolution ultrasound transducer. # OF IMAGES: 21 COMPARISON: Comparison is made with prior mammogram and ultrasound of the left breast dated November 17, 2019. FINDINGS: LEFT Breast: Under direct sonographic guidance, the surgeon performed 2 core biopsies of the 1.9 cm x 1.5 cm x 1.3 cm solid mass at the 1:00 position of the breast at 5 cm from the nipple. US/US Breast Biopsy 1st Lesion IMPRESSION: Successful ultrasound-guided left breast biopsy. ASSESSMENT CATEGORY: BIRADS Category 4: Suspicious - Biopsy Should Be Considered. A letter regarding these results will be sent to the patient by the facility within 30 days. Electronically Signed: Hector Buck, at 12:55 EDT , Service support ,
--- NOTE | 2019-12-14 12:30 | BRBX_PTH ---
PATIENT: MARIBETH CASTRO LOC: [facility] U#:[id number] AGE/SX: 64/F ROOM: RE12/14/[address]: Dr. Beena Jacobs MD : [id number] BED: DIS: SPEC #: [id number] RECD: 12/14/19 12:48 STATUS: KEL REQ #: [id number] [place]: 12/14/19 12:[address]: Beena Jacobs DEPT: SURGICAL PATHOLOGY RECD BY: Eros Gary ENTERED: 12/15/19 10:19 SP TYPE: BREAST BX OTHR DR: Dr. Darshana Espinal MD Tissues: Left breast, NOS Procedures: Surgery Specimen Level IV HEADER OPERATION: Ultrasound-guided left breast biopsy PRE-OP DIAGNOSIS: Left breast mass TISSUE SUBMITTED: Left breast ISCHEMIC TIME: 1 minute FIXATION TIME: 31 hours MICROSCOPIC DIAGNOSIS Left breast, core biopsy: Collagenized stroma. Focal involutional change. Focal fat necrosis. No evidence of malignancy. AM:yue 12/16/19 COMMENT Case has been reviewed in consultation with Dr. Pablo who concurs with the above diagnosis. IDC:SJ MICROSCOPIC DESCRIPTION Slides are reviewed. GROSS DESCRIPTION Received in fixative is one container labeled with the patient's name and designated left breast. The specimen consists of multiple elongated fragments of wong-yellow fibroadipose tissue that in aggregate measure 1.5 x 0.2 x 0.1 cm. The entire specimen is submitted in one cassette. / ARTIE:yue 12/15/19 TC:5 CPT: 26283
--- NOTE | 2019-12-14 12:31 | OP.PCM_ITS ---
Report of Operation Date of Procedure: 12/14/19 Pre-Operative Diagnosis: Left breast mass Post-Operative Diagnosis: Same Surgery/Procedure Performed:: Ultrasound-guided left breast biopsy Type of Anesthesia:: Local Specimen's removed: Left breast mass 1:00 5 cm from the nipple Estimated Blood Loss (mL): Minimal Description of Procedure: Indications: 59 year-old female with hypoechoic nodule at 1:00 in the left breast 5 centimeters from the nipple. Risk benefits were discussed the patient and she elected to proceed with ultrasound guided core biopsy with clip plac ement Description of procedure: Patient was brought into the ultrasound room in the left breast was marked. A timeout was completed verifying correct patient, procedure, site, specially, prior to beginning procedure. The left breast was prepped and draped in usual sterile fashion and using local anesthesia was obtained with 1% lidocaine with epi. The lesion was located with the ultrasound. Small incision was made with 11 blade to introduced the BARD MaxCore through the skin. Under ultrasound guidance multiple core samples were obtained using then 14-gauge BARD MaxCore and sent in formalin for pathology. The Bard dual ultra clip ribbon was then deployed into the biopsy cavity under ultrasound guidance and a picture was taken. Upon completion procedure hemostasis was obtained and a Steri-Strip and OpSite were placed. Patient was then taken to the mammography suite for clip verification. The clip was verified. The patient tolerated the procedure well and was discharged from the breast imaging department good condition. complications: none - Complications None
== END ==
PROVIDERS: PCP Family Medicine; Visit Provider Surgery
DX: N60.32 Fibrosclerosis of left breast (principal); N64.1 Fat necrosis of breast
CPT/HCPCS: 19083; 88305

== ENCOUNTER → 2020-03-29 10:52 | Outpatient (CLI) | payer SELFPAY ==
[2019-12-11 08:35] VITALS: BMI 27.6
--- NOTE | 2020-03-29 10:55 | US_ITS ---
STUDY: ULTRASOUND BREAST - LEFT REASON FOR EXAM: Female, 59 years old. Nodule TECHNIQUE: Axial and longitudinal images of the LEFT breast were performed with a high resolution ultrasound transducer. # OF IMAGES: 17 COMPARISON: 12/14/2019 FINDINGS: LEFT Breast: No change in the appearance of a previously described, biopsied nodule in the left breast measuring 2.1 x 1.4 x 1.2 cm at 1:30. No posterior shadowing or suspicious vascularity noted. No architectural distortion or clustered shadowing calcifications. US/Breast Limited Unilateral IMPRESSION: Stable appearance of a previously noted and biopsied nodule in the left breast. ASSESSMENT CATEGORY: BIRADS Category 2: Benign. A letter regarding these results will be sent to the patient by the facility within 30 days. Electronically Signed: Carlton Loza MD at 12:17 EDT , Service support ,
== END ==
PROVIDERS: PCP Family Medicine; Referring Provider Family Medicine; Visit Provider Family Medicine
DX: N63.20 Unspecified lump in the left breast, unspecified quadrant (principal)
CPT/HCPCS: 76642

== ENCOUNTER → 2020-11-02 09:53 | Outpatient (CLI) | payer SELFPAY ==
[2019-12-11 08:35] VITALS: BMI 27.6
[2020-11-02 12:58] LABS: AST(SGOT) 16 U/L (15-37); Alanine Aminotransfer ALT/SGPT 32 U/L (13-56); Anion Gap 4 (5-15); BUN 14 mg/dL (7-18); BUN/Creat Ratio 18.5 RATIO (10-20); Calcium,Total 9.2 mg/dL (8.5-10.1); Chloride 107 mmol/L (98-107); Cholesterol 150 mg/dL (200); Creatinine, Serum 0.76 mg/dL (0.55-1.02); EST Glomerular Filtration Rate 83 mL/min (>60); Est Glom Filt Rate - Afr Amer 100 mL/min (>60); Glucose 93 mg/dL (74-106); High Density Lipoprotein 63 mg/dL; Potassium 4.2 mmol/L (3.5-5.1); Sodium Level 141 mmol/L (136-145); Triglycerides 86 mg/dL; Very Low Density Lipoprotein 17 mg/dL (5-40)
== END ==
PROVIDERS: PCP Family Medicine; Referring Provider Family Medicine; Visit Provider Family Medicine
DX: I10 Essential (primary) hypertension (principal); E78.5 Hyperlipidemia, unspecified
CPT/HCPCS: 36415; 80048; 80061; 84450; 84460

== ENCOUNTER 2020-12-02 15:32 | Outpatient (RCR) | payer MEDICARE, SELFPAY ==
[2019-12-11 08:35] VITALS: BMI 27.6
== END 2021-02-14 23:59 ==
LOC: IMMUN 15:32
PROVIDERS: PCP Family Medicine; Visit Provider Family Medicine
DX: Z23 Encounter for immunization (principal)
CPT/HCPCS: 0001A; 0002A; 91300

== ENCOUNTER 2021-03-17 15:04 | Emergency (ER) | payer OTHER, SELFPAY ==
[2019-12-11 08:35] VITALS: BMI 27.6
[2021-03-17 15:05] VITALS: BP 131/77; PULSE 71; RESP 18; TEMP 36.4; O2SAT 100; BMI 25.2
--- NOTE | 2021-03-17 15:27 | EKG12_ITS ---
Test Reason : CP Blood Pressure : / mmHG Vent. Rate : 069 BPM Atrial Rate : 069 BPM P-R Int : 150 ms QRS Dur : 092 ms QT Int : 410 ms P-R-T Axes : 041 028 063 degrees QTc Int : 439 ms Normal sinus rhythm Normal ECG Confirmed by MALKA CEJA, GITA ([id number]), editor department MAIA DEL CID ([id number]) on 03/20/2021 1:19:44 PM Referred By: ROBYN Confirmed By:GITA ACE MD
--- NOTE | 2021-03-17 15:33 | ED.VIS.CHEST ---
HPI History of Present Illness Chief Complaint: Chest Pain Informant: patient and spouse/S.O. Onset/Context/Timing Onset: Hours Activity at onset: sudden Timing: Intermittent Quality: Positive for Sharp and Stabbing Location: Substernal Current Severity: Gone Maximum Severity: Severe Worsened By: Nothing Relieved By: Nothing and - (Patient states it was improving after she took 2 Tums which she chewed up.) Associated Symptoms: Positive for Diaphoresis and Lightheadedness; Negative for Nausea, Vomiting, Dyspnea, Cough, Fever, Acid Reflux and Palpitations Narrative Narrative: Patient is a 60-year-old woman with history of hypertension hypercholesterolemia who presents because of chest pain that occurred 10 minutes after having spaghetti with fried eggplant. The pain was substernal/subxiphoid. She became lightheaded and slightly sweaty. 2 minutes after the onset of pain she took/treated 2 times. She was having improvement. She contacted [facility] for transport evaluation. She states she has had this before. She is not seek medical attention at that time. When asked why she did today she responded my sister had a heart attack. There is family history of cholelithiasis. She denies intolerance to greasy or fried foods or history of cholelithiasis. She denies history of GERD, hiatal hernia or peptic ulcer disease. She presently is pain-free. When EKG was performed she still had slight discomfort. There was no radiation, nausea, shortness of breath. Patient does have history of hypertension hypercholesterolemia. She is a non-smoker. Prior Similar Symptoms: Yes Recent Illness/Hospitalization: No CVD Risk Factors: Positive for Hypertension and Hypercholesterolemia; Negative for Diabetes, Family History 1' </=55 and Smoking PE Risk Factors: Negative for Recent Travel/Surgery, Recent Immobilization, Prior DVT or PE, Cancer and OCP + Smoking + >/=35 TAD Risk Factors: Positive for Hypertension; Negative for Marfan's Syndrome and Family History [facility] Medical History Anxiety Back pain Constipation History of basal cell carcinoma HTN (hypertension) Hyperlipidemia Home Medications amlodipine 5 mg PO DAILY #60 tab 07/29/18 [Rx Last Taken Unknown] ascorbic acid (vitamin C) 500 mg PO DAILY@0800 07/29/18 [History Last Taken 07/27/18 08:00] atorvastatin 40 mg PO DAILY #60 tab 07/29/18 [Rx Last Taken Unknown] bi-roj-qgqoi-calcium carb-K1 1 ea PO DAILY 07/29/18 [History Last Taken 07/27/18 08:00] zinc 50 mg PO DAILY 07/29/18 [History Last Taken 07/27/18 08:00] echinacea 500 mg capsule 500 mg PO DAILY cap 12/11/19 [History Last Taken Unknown] elderberry fruit 200 mg capsule mg PO 12/11/19 [History Last Taken Unknown] Allergy/AdvReac Type Severity Reaction Status Date / Time azithromycin Allergy Mild hives Verified 03/17/21 15:08 sulfamethoxazole Allergy Mild hives Verified 03/17/21 15:08 [From ] trimethoprim [From ] Allergy Mild hives Verified 03/17/21 15:08 Iodinated Contrast Media [CT] Allergy Hives Verified 03/17/21 15:08 Family History Mother Breast cancer Father Diabetes Sister Hypertension Brother Hypertension Surgical History History of basal cell carcinoma (BCC) excision History of right breast biopsy History of total hysterectomy Social History (Updated 03/17/21 @ 15:[address] Nando Cameron MD) household members: spouse housing: house Smoking Status: Never smoker alcohol intake: current alcohol intake frequency: holidays/special occasions only substance use type: does not use ROS ROS ED Constitutional Constitutional ED: Denies chills, fever(s) or subjective Eyes Eyes: Denies blurry vision, change in vision or diplopia ENT ENT ED: Denies ear pain, rhinorrhea or sore throat Cardiovascular Cardiovascular: Reports as per HPI; Denies orthopnea Respiratory/Chest Respiratory/Chest: Denies cough, dyspnea, dyspnea on exertion or orthopnea Gastrointestinal Gastrointestinal: Denies abdominal pain, diarrhea, nausea or vomiting Musculoskeletal Musculoskeletal: Denies arthralgias, back pain, myalgias or neck pain Integumentary Denies rash Neurologic Neurologic: Denies headache(s), paresthesias or weakness Endocrine Endocrinology: Denies polydipsia, polyphagia or polyuria Hematologic/Lymphatic Hematologic/Lymphatic: Denies easy bleeding or easy bruising EXAM Physical Exam Const Vital Signs: 03/17/21 15:05 03/17/21 15:10 03/17/21 15:34 Temperature 97.5 F L Temperature Source Oral Pulse Rate 71 Respiratory Rate 18 Respiratory Effort Normal Non-Labored Blood Pressure 131/77 H Blood Pressure Mean 95 Pulse Ox 100 100 Oxygen Delivery Method Room Air Room Air 03/17/21 17:39 Temperature Temperature Source Pulse Rate 71 Respiratory Rate 20 H Respiratory Effort Blood Pressure 123/73 H Blood Pressure Mean 89 Pulse Ox 99 Oxygen Delivery Method Room Air Positive well nourished and well developed General Appearance ED: well developed and NAD; Negative for pallor HEENT normocephalic and atraumatic Eyes PERRL and EOMs intact bilaterally General Eye ED: Negative for pale conjunctiva or scleral icterus Neck no lymphadenopathy, supple and no JVD General: Negative for tenderness Chest Wall inspection of chest normal and palpation of chest normal Resp normal respiratory effort and clear to auscultation bilaterally Effort and Inspection: respiratory distress Cardio regular rate, regular rhythm, S1 normal heart sound, S2 normal heart sound and no murmurs GI normal to inspection, nondistended, normoactive bowel sounds, soft to palpation, non-tender and non-distended Back/Spine no CVA tenderness Extremity normal to inspection General Extremety ED: Negative for edema, pulses abnormal or tenderness General Extremity: Negative for edema or pulses abnormal Neuro oriented x3 and CN's II-XII intact bilaterally Sensorium / Orientation: awake, alert, oriented to person, oriented to place and oriented to time Motor Exam: strength 5/5 throughout Psych mental status grossly normal Skin no rashes or lesions noted and no wounds General Skin Exam: Negative for jaundice or pallor Heart Score History: Slightly/Non-Suspicious ECG: Normal Age: >45 - <65 years Risk Factors: 1 or 2 Risk Factors Troponin: </= Normal Limit Score: 2 MDM MDM MDM Narrative Medical decision making narrative: She presents with atypical chest pain. This may represent reflux versus gallbladder. Cardiac work-up was undertaken. My suspicion is this is most likely reflux and she had marked improvement with Tums. Lab Data Attestation: I reviewed the patient's lab results. Lab results narrative: Since the first troponin and 2-hour delta troponin are both normal and less than 7 rise she will be discharged to home. Labs: Laboratory Results - last 24 hr 03/17/21 03/17/21 03/17/21 14:52 14:52 18:00 WBC 7.0 RBC 4.82 Hgb 14.3 Hct 43.0 MCV 89.2 MCH 29.7 MCHC 33.3 RDW Std Deviation 37.7 RDW Coeff of [place] 11.7 Plt Count 308 MPV 9.4 Immature Gran % (Auto) 0.700 Neut % (Auto) 44.3 L Lymph % (Auto) 45.6 H [place] % (Auto) 7.6 Eos % (Auto) 0.9 Baso % (Auto) 0.9 Absolute Neuts (auto) 3.1 Absolute Lymphs (auto) 3.17 Nucleated RBC % 0 Sodium 139 Potassium 3.3 L Chloride 104 Carbon Dioxide 28.0 Anion Gap 7 BUN 18 Creatinine 0.79 Estim Creat Clear Calc 70.89 Est GFR (MDRD) Af Amer 96 Est GFR (MDRD) Non-Af 79 BUN/Creatinine Ratio 22.8 H Glucose 120 H Calcium 9.3 Troponin I High Sens 4.0 4.9 Radiography Chest X-Ray - ED: 1 View, Read by ED Physician, Read by Radiologist, Heart, Lungs, Mediastinum, Bony Structures and No Acute Disease Diagnostic Testing: Radiology Impression Chest X-Ray 03/17/21 16:20 IMPRESSION: Normal x-ray examination of the chest. Electronically Signed: Jose Sandhu MD at 16:47 EDT Tel , Service support , EKG Initial EKG: Attestation: I personally reviewed and interpreted this EKG as follows: Interpretation: Sinus Rhythm (Normal sinus rhythm rate of 69. [place] interval 250 ms. Cures duration 90 ms. QT duration 410 ms. [place] is normal. The EKG is normal.) Discharge Plan Triage Chief Complaint: Chest Pain ED Provider: Nando Cameron Dx/Rx/DC Orders Clinical Impression: Chest pain, non-cardiac, Acid reflux Instructions: GERD Lifestyle Changes, ED GERD (Adult) Prescriptions: No Action elderberry fruit 200 mg capsule 200 mg capsule PO RF: 0 echinacea 500 mg capsule 500 mg PO DAILY RF: 0 ascorbic acid (vitamin C) 500 MG tablet 500 mg PO DAILY@0800 RF: 0 zinc 50 MG tablet 50 mg PO DAILY RF: 0 sm-srf-oggwo-calcium carb-K1 1 EACH tablet 1 ea PO DAILY RF: 0 atorvastatin 40 MG tablet 40 mg PO DAILY Qty: 60 RF: 0 amlodipine 5 MG tablet 5 mg PO DAILY Qty: 60 RF: 0 Primary Care Provider: Darshana Espinal Referrals: Darshana Espinal MD [Primary Care Provider] - As Needed Disposition Disposition: Home, Self Care
[2021-03-17 15:34] VITALS: O2SAT 100
[2021-03-17 15:50] LABS: Absolute Lymphocyte Count 3.17 X10^3/uL (0.83-4.51); Absolute Neutrophil Count 3.1 X10^3/uL (2.0-7.7); Basophil# 0.06 X10^3/uL; Basophil% 0.9 % (0-1); Eosinophil# 0.06 X10^3/uL; Eosinophils% 0.9 % (0-5); Hemoglobin 14.3 g/dL (12.0-15.0); Lymphocyte # 3.17 X10^3/ul (0.83-4.51); Lymphocyte % 45.6 % (19-41); Mean Corp Hgb Conc 33.3 g/dL (32-36); Mean Corpuscular Hgb 29.7 pg (27.0-32.0); Mean Corpuscular Volume 89.2 fL (81-99); Mean Platelet Vol. 9.4 fl (6.2-12.0); Monocyte# 0.53 X10^3/uL; Monocyte% 7.6 % (0-10); NRBC Flagged by Analyzer 0 % (0-5); Neutrophil # 3.08 X10^3/uL (2.7-7.7); Neutrophil % 44.3 % (47-70); Platelet Count 308 K/mm3 (150-450); RBC Distribution Width CV 11.7 % (11.6-14.6); RBC Distribution Width SD 37.7 fl (35.1-43.9); Red Blood Count 4.82 M/mm3 (4.2-5.4)
[2021-03-17 16:13] LABS: Anion Gap 7 (5-15); BUN 18 mg/dL (7-18); BUN/Creat Ratio 22.8 RATIO (10-20); Calcium,Total 9.3 mg/dL (8.5-10.1); Chloride 104 mmol/L (98-107); Creatinine, Serum 0.79 mg/dL (0.55-1.02); EST Glomerular Filtration Rate 79 mL/min (>60); Est Glom Filt Rate - Afr Amer 96 mL/min (>60); Estimated Creatinine Clearance 70.89 ml/min; Glucose 120 mg/dL (74-106); Potassium 3.3 mmol/L (3.5-5.1); Sodium Level 139 mmol/L (136-145)
--- NOTE | 2021-03-17 16:20 | RAD_ITS ---
STUDY: X-RAY CHEST REASON FOR EXAM: Female, 60 years old. chest pain TECHNIQUE: PA and lateral views of the chest. COMPARISON: 09/11/2019 FINDINGS: The lungs are clear and expanded. There is no demonstrated pleural abnormality. Normal size heart. Normal mediastinum and mary. Normal visualized pulmonary arteries. Normal visualized aortic arch and descending thoracic aorta. Normal visualized thoracic spine. Normal visualized ribs, clavicles, and shoulders. There is no demonstrated abnormality of the visualized soft tissue structures of the upper abdomen. RAD/Chest PA and Lateral IMPRESSION: Normal x-ray examination of the chest. Electronically Signed: Jose Sandhu MD at 16:47 EDT Tel , Service support ,
[2021-03-17 17:39] VITALS: BP 123/73; PULSE 71; RESP 20; O2SAT 99
[2021-03-17 18:20] LABS: Troponin-I HS 4.9 pg/mL (3.0-53.7)
[2021-03-17 19:10] VITALS: BP 132/87; PULSE 70; RESP 16; O2SAT 99
== END 2021-03-17 19:11 | disposition home or self-care (01) ==
PROVIDERS: Emergency Provider Emergency Medicine; PCP Family Medicine
DX: R07.89 Other chest pain (principal); E78.00 Pure hypercholesterolemia, unspecified; E78.5 Hyperlipidemia, unspecified; I10 Essential (primary) hypertension; Z79.899 Other long term (current) drug therapy
CPT/HCPCS: 71046; 80048; 84484; 85025; 93005; 99285; A4216

== ENCOUNTER → 2021-05-11 08:47 | Outpatient (CLI) | payer SELFPAY ==
--- NOTE | 2021-05-11 08:58 | US_ITS ---
STUDY: ABDOMINAL ULTRASOUND - RIGHT UPPER QUADRANT REASON FOR VISIT: Female, 60 years old epigastric and abdominal pain TECHNIQUE: Ultrasound evaluation of the right upper quadrant was performed with real-time and static jackson-scale imaging. TECHNICAL QUALITY: Adequate. COMPARISON: None. FINDINGS: Liver: The liver measures 16.9 cm. There is normal echogenicity of the liver. The bile ducts are within normal limits. There is hepatic color flow. The direction of portal flow is hepatopetal. There is no demonstrated mass lesion, there is a simple 1.8 cm cyst in the left lobe.. Gallbladder: Normal distended gallbladder. The gallbladder wall measures 3.3 mm. There is a negative sonographic Gann''s sign. There is no pericholecystic fluid. There is a solitary echogenic gallstone, echogenic sludge and a nonshadowing polyp. Common Bile Duct (C.B.D.): The common bile duct measures 5.1 mm. Pancreas: Normal size of the head, body and tail of the pancreas. There is normal echogenicity of the pancreas. There is no demonstrated pancreatic mass or cyst. Right Kidney: Normal size of the right kidney. The right kidney measures 10.4 x 5.0 x 4.1 cm. Normal renal cortex. The right cortex measures 1.0 cm. There is no demonstrated renal mass or cyst. There is no right hydronephrosis. US/Abdomen Limited IMPRESSION: There is a 2.1 x 2.0 x 1.2 cm shadowing gallbladder stone with associated echogenic sludge and a nonshadowing polyp. There is associated gallbladder wall thickening at 3.3 mm. However, the card processing clerk notes a negative GANN sign, there is no pericholecystic fluid or biliary dilatation. A HIDA scan may be of benefit for further evaluation Simple cyst in the left lobe of the liver, no specific follow-up needed Electronically Signed: Carlton Loza MD at 11:31 EDT , Service support ,
== END ==
PROVIDERS: PCP Family Medicine; Referring Provider Family Medicine; Visit Provider Family Medicine
DX: R10.13 Epigastric pain (principal)
CPT/HCPCS: 76705

== ENCOUNTER → 2021-06-22 12:25 | Outpatient (CLI) | payer SELFPAY ==
--- NOTE | 2021-06-22 12:46 | BI_ITS ---
MAMMOGRAPHY - BILATERAL SCREENING REASON FOR EXAM: Female, 60 years old. Routine annual screening examination. PERTINENT HISTORY: Mother with breast cancer. Prior right stereotactic breast biopsy. TECHNIQUE: Digital bilateral breast maria l (3D mammographic acquisition) in the CC and MLO projections. 2-D mediolateral oblique (MLO) and craniocaudad (CC) views of both breasts were obtained. CAD: Full Field Digital Mammography with Computer Added Detection was performed. COMPARISON: Comparison is made with prior examination dated 11/12/2019 and 09/23/2018. FINDINGS: Breast Composition: The breasts are heterogeneously dense, which may obscure small masses. There are no dominant masses or suspicious calcifications. Stable 2 cm x 2 cm well-defined nodule in the upper lateral aspect of the left breast. A tissue clip marker is seen within it. Stable calcified nodule in the upper central deep portion of the right breast. A tissue clip marker is seen within this well. Stable bilateral axillary lymph nodes. No other significant abnormalities are identified. There has been no significant change since the prior study. BI/SCRN MAMM (CAD)W/MARIA L BILAT IMPRESSION: Stable bilateral screening mammogram. Yearly follow-up mammogram recommended. (A) ASSESSMENT CATEGORY: BIRADS Category 2: Benign. A letter regarding these results will be sent to the patient by the facility within 30 days. Approximately 10% of breast cancers are not detected by mammography. A normal mammogram should not delay biopsy of a clinically suspicious abnormality. [id number] Electronically Signed: Hector Buck MD at 13:58 EDT , Service support ,
== END ==
PROVIDERS: PCP Family Medicine; Referring Provider Family Medicine; Visit Provider Family Medicine
DX: Z12.31 Encounter for screening mammogram for malignant neoplasm of breast (principal); Z80.3 Family history of malignant neoplasm of breast
CPT/HCPCS: 77063; 77067

== ENCOUNTER 2021-11-08 10:53 | Outpatient (CLI) | payer OTHER, SELFPAY ==
[2021-11-08 12:24] LABS: AST(SGOT) 20 U/L (15-37); Alanine Aminotransfer ALT/SGPT 35 U/L (13-56); Anion Gap 4 (5-15); BUN 15 mg/dL (7-18); BUN/Creat Ratio 19.8 RATIO (10-20); Calcium,Total 9.4 mg/dL (8.5-10.1); Chloride 105 mmol/L (98-107); Cholesterol 135 mg/dL (200); Creatinine, Serum 0.76 mg/dL (0.55-1.02); EST Glomerular Filtration Rate 83 mL/min (>60); Est Glom Filt Rate - Afr Amer 100 mL/min (>60); Glucose 101 mg/dL (74-106); High Density Lipoprotein 54 mg/dL; Potassium 3.9 mmol/L (3.5-5.1); Sodium Level 139 mmol/L (136-145); Triglycerides 97 mg/dL; Very Low Density Lipoprotein 19 mg/dL (5-40)
== END 2021-11-08 23:59 | disposition home or self-care (01) ==
PROVIDERS: PCP Family Medicine; Referring Provider Family Medicine; Visit Provider Family Medicine
DX: E78.5 Hyperlipidemia, unspecified (principal); I10 Essential (primary) hypertension
CPT/HCPCS: 36415; 80048; 80061; 84450; 84460

== ENCOUNTER → 2022-06-26 | Outpatient (CLI) | payer OTHER, SELFPAY ==
--- NOTE | 2022-06-26 09:50 | BI_ITS ---
MAMMOGRAPHY - BILATERAL SCREENING REASON FOR EXAM: Female, 61 years old. Routine annual screening examination. PERTINENT HISTORY: Mother with breast cancer. Prior right stereotactic breast biopsy. TECHNIQUE: Digital bilateral breast maria l (3D mammographic acquisition) in the CC and MLO projections. 2-D mediolateral oblique (MLO) and craniocaudad (CC) views of both breasts were obtained. CAD: Full Field Digital Mammography with Computer Added Detection was performed. COMPARISON: Comparison is made with prior study 06/22/2021 and 11/12/2019. FINDINGS: Breast Composition: The breasts are heterogeneously dense, which may obscure small masses. No significant, is a stable 2 cm x 2 cm well-defined nodule in the upper lateral aspect of the left breast. A tissue clip marker is seen within it. Stable focal calcifications in the upper central deep portion of the right breast. A tissue clip marker is seen at that site. There is been essentially no change. Small benign-appearing bilateral axillary lymph nodes. No other significant abnormalities are identified. There has been no significant change since the prior study. BI/SCRN MAMM (CAD)W/MARIA L BILAT IMPRESSION: Stable bilateral screening mammogram. Yearly follow-up mammogram recommended. (A) ASSESSMENT CATEGORY: BIRADS Category 2: Benign. A letter regarding these results will be sent to the patient by the facility within 30 days. Approximately 10% of breast cancers are not detected by mammography. A normal mammogram should not delay biopsy of a clinically suspicious abnormality. [id number] Electronically Signed: Hector Buck MD at 11:12 EDT ,
--- NOTE | 2022-06-26 10:00 | BD_ITS ---
STUDY: DUAL ENERGY X-RAY ABSORPTIOMETRY / DXA REASON FOR EXAM: Female, 61 years old. Post menopausal screening TECHNIQUE: Bone Mineral Density (BMD) measurements of lumbar spine and bilateral hips were obtained. COMPARISON: 2019 FINDINGS: Lumbar Spine (L1-L4): g/cm2 (0.713) / T-score (-3.0) / Z-score (-1.5) Findings are suggestive of osteoporosis with a high fracture risk. Left Femur Total: g/cm2 (0.809) / T-score (-1.1) / Z-score (-0.1) Left Femoral Neck: g/cm2 (0.750) / T-score (-0.9) / Z-score (0.5) Right Femur Total: g/cm2 (0.760) / T-score (-1.5) / Z-score (-0.5) Right Femoral Neck: g/cm2 (0.625) / T-score (-2.0) / Z-score (-0.7) The T-Scores on the most recent prior examination were: There has been worsening of bone density since the previous examination. BD/Dexa Bone Density Study IMPRESSION: The patient is considered osteoporotic as outlined below according to World Idris Organization (WHO) criteria with a high fracture risk. There has been worsening of bone density since the previous examination. Reference Information: The T-score is the number of standard deviations above or below the standard which is normal for young adults at their peak bone mineral density. The World Health Organization (WHO) interprets the T-scores as follows: Above -1 Normal bone density Between -1 and -2.5 Osteopenia Equal to / or below -2.5 Osteoporosis As a practical clinical guideline, osteopenia may be graded as follows: Mild -1 through -1.5 Moderate -1.6 through -2.0 Severe -2.1 through -2.4 The Z-score is the number of standard deviations above or below age-matched controls. A Z-score of less than -1.5 would be considered abnormal. References: 1. NIH Osteoporosis and Related Bone Diseases www osteo.org 2. International Society for Clinical Densitometry www iscd.org 3. National Osteoporosis Foundation www nof.org Electronically Signed: Carlton Loza MD at 7:55 EDT ,
== END | disposition home or self-care (01) ==
LOC: OPBD 09:47
PROVIDERS: PCP Family Medicine; Visit Provider Family Medicine
DX: M81.0 Age-related osteoporosis without current pathological fracture (principal); N95.9 Unspecified menopausal and perimenopausal disorder; Z12.31 Encounter for screening mammogram for malignant neoplasm of breast; Z80.3 Family history of malignant neoplasm of breast
CPT/HCPCS: 77063; 77067; 77080

== ENCOUNTER → 2022-11-12 | Outpatient (CLI) | payer OTHER, SELFPAY ==
[2022-11-12 15:22] LABS: AST(SGOT) 25 U/L (15-37); Alanine Aminotransfer ALT/SGPT 38 U/L (13-56); Anion Gap 5 (5-15); BUN 14 mg/dL (7-18); BUN/Creat Ratio 19.4 RATIO (10-20); Calcium,Total 9.1 mg/dL (8.5-10.1); Chloride 105 mmol/L (98-107); Cholesterol 142 mg/dL (200); Creatinine, Serum 0.72 mg/dL (0.55-1.02); EST Glomerular Filtration Rate 87 mL/min (>60); Est Glom Filt Rate - Afr Amer 105 mL/min (>60); Glucose 93 mg/dL (74-106); High Density Lipoprotein 59 mg/dL; Potassium 4.2 mmol/L (3.5-5.1); Sodium Level 141 mmol/L (136-145); Triglycerides 74 mg/dL; Very Low Density Lipoprotein 15 mg/dL (5-40)
== END | disposition home or self-care (01) ==
LOC: MFPLAB 11:16
PROVIDERS: PCP Family Medicine; Visit Provider Family Medicine
DX: E78.5 Hyperlipidemia, unspecified (principal); I10 Essential (primary) hypertension
CPT/HCPCS: 36415; 80048; 80061; 84450; 84460

== ENCOUNTER → 2023-06-28 | Outpatient (CLI) | payer OTHER, SELFPAY ==
--- NOTE | 2023-06-28 09:53 | BI_ITS ---
MAMMOGRAPHY - BILATERAL SCREENING REASON FOR EXAM: Female, 62 years old. Routine annual screening examination. PERTINENT HISTORY: Mother with breast cancer. Prior right stereotactic breast biopsy. TECHNIQUE: Digital bilateral breast maria l (3D mammographic acquisition) in the CC and MLO projections. 2-D mediolateral oblique (MLO) and craniocaudad (CC) views of both breasts were obtained. CAD: Full Field Digital Mammography with Computer Added Detection was performed. COMPARISON: Comparison is made with prior examination June 26, 2022 and June 22, 2021. FINDINGS: Breast Composition: The breasts are heterogeneously dense, which may obscure small masses. Once again, a tissue clip marker is seen within the well-defined nodule in the deep upper lateral aspect of the right breast measuring 1.9 cm x 2 cm. This is unchanged. A tissue clip marker is also seen in the upper deep central portion of the right breast. Focal calcifications are seen within the nodule. Stable small benign-appearing bilateral axillary lymph nodes. No other significant abnormalities are identified. There has been no significant change since the prior study. BI/SCRN MAMM (CAD)W/MARIA L BILAT IMPRESSION: Stable bilateral screening mammogram. Yearly follow-up mammogram recommended. (A) ASSESSMENT CATEGORY: BIRADS Category 2: Benign. A letter regarding these results will be sent to the patient by the facility within 30 days. Approximately 10% of breast cancers are not detected by mammography. A normal mammogram should not delay biopsy of a clinically suspicious abnormality. [id number] Electronically Signed: Hector Buck MD at 11:09 EDT ,
== END | disposition home or self-care (01) ==
LOC: OPBI 09:52
PROVIDERS: PCP Family Medicine; Referring Provider Family Medicine; Visit Provider Family Medicine
DX: Z12.31 Encounter for screening mammogram for malignant neoplasm of breast (principal); Z80.3 Family history of malignant neoplasm of breast
CPT/HCPCS: 77063; 77067

== ENCOUNTER → 2023-11-18 | Outpatient (CLI) | payer OTHER, SELFPAY | END | disposition home or self-care (01) | LOC: MFPLAB 10:32 | PROVIDERS: PCP Family Medicine; Visit Provider Family Medicine | DX: Z00.00 Encounter for general adult medical examination without abnormal findings (principal) ==

== ENCOUNTER → 2023-11-19 | Outpatient (CLI) | payer OTHER, SELFPAY ==
[2023-11-19 15:48] LABS: Protein:Creat Ratio 129 mg/g CRE (0-200)
[2023-11-19 19:26] LABS: AST(SGOT) 20 U/L (15-37); Alanine Aminotransfer ALT/SGPT 31 U/L (13-56); Anion Gap 6 (5-15); BUN 16 mg/dL (7-18); BUN/Creat Ratio 20.3 RATIO (10-20); Chloride 106 mmol/L (98-107); Cholesterol 141 mg/dL (200); Creatinine, Serum 0.79 mg/dL (0.55-1.02); EST Glomerular Filtration Rate 78 mL/min (>60); Est Glom Filt Rate - Afr Amer 95 mL/min (>60); Glucose 98 mg/dL (74-106); High Density Lipoprotein 55 mg/dL; Sodium Level 139 mmol/L (136-145); Triglycerides 87 mg/dL; Very Low Density Lipoprotein 17 mg/dL (5-40)
== END | disposition home or self-care (01) ==
LOC: MFPLAB 09:57
PROVIDERS: PCP Family Medicine; Visit Provider Family Medicine
DX: I10 Essential (primary) hypertension (principal); E78.5 Hyperlipidemia, unspecified
CPT/HCPCS: 36415; 80048; 80061; 82570; 84156; 84450; 84460

== ENCOUNTER → 2024-06-29 | Outpatient (CLI) | payer OTHER, SELFPAY ==
--- NOTE | 2024-06-29 10:30 | BI_ITS ---
MAMMOGRAPHY - BILATERAL SCREENING REASON FOR EXAM: Female, 63 years old. Routine annual screening examination. PERTINENT HISTORY: Mother with breast cancer. Prior right stereotactic breast biopsy and left ultrasound-guided breast biopsy. TECHNIQUE: Digital bilateral breast olena (3D mammographic acquisition) in the CC and MLO projections. 2-D mediolateral oblique (MLO) and craniocaudad (CC) views of both breasts were obtained. CAD: Full Field Digital Mammography with Computer Added Detection was performed. COMPARISON: Comparison is made with prior examination dated June 28, 2023 and June 26, 2022. FINDINGS: Breast Composition: The breasts are extremely dense, which lowers the sensitivity of mammography. There are no dominant masses or suspicious calcifications. Once again, a tissue clip marker is seen within the well-defined nodule in the deep upper lateral aspect of the left breast. A tissue clip marker is also seen in the upper deep central portion of the right breast. Stable focal calcifications are seen within the nodule adjacent to the clip marker in the upper lateral aspect of the right breast. Stable benign-appearing axillary lymph nodes. No other significant abnormalities are identified. There has been no significant change since the prior study. BI/SCREENING MAMM (CAD), BILAT IMPRESSION: Stable bilateral screening mammogram. Yearly follow-up mammogram recommended. (A) ASSESSMENT CATEGORY: BIRADS Category 2: Benign. A letter regarding these results will be sent to the patient by the facility within 30 days. Approximately 10% of breast cancers are not detected by mammography. A normal mammogram should not delay biopsy of a clinically suspicious abnormality. [id number] Electronically Signed: Hector Buck MD at 12:32 EDT ,
== END | disposition home or self-care (01) ==
LOC: OPBI 10:30
PROVIDERS: PCP Family Medicine; Referring Provider Nurse Practitioner Family; Visit Provider Nurse Practitioner Family
DX: Z12.31 Encounter for screening mammogram for malignant neoplasm of breast (principal)
CPT/HCPCS: 77067

== ENCOUNTER → 2024-11-27 | Outpatient (CLI) | payer OTHER, SELFPAY ==
[2024-11-27 16:17] LABS: Protein, Urine (Random) 6.6 mg/dL (0.0-12.0); Protein:Creat Ratio 325 mg/g CRE (0-200)
[2024-11-27 16:45] LABS: AST(SGOT) 24 U/L (<=31); Alanine Aminotransfer ALT/SGPT 25 U/L (<=34); Anion Gap 11 (5-15); BUN 12 mg/dL (4-19); BUN/Creat Ratio 17.4 RATIO (10-20); Calcium,Total 9.2 mg/dL (7.6-11.0); Carbon Dioxide 24.6 mmol/L (21.0-32.0); Chloride 104 mmol/L (98-108); Cholesterol 140 mg/dL (<=200); EST Glomerular Filtration Rate 97 (>60); Glucose 92 mg/dL (70-99); High Density Lipoprotein 60 mg/dL; Low Density Lipoprotein Calc. 66 mg/dL; Potassium 4.1 mmol/L (3.3-5.1); Sodium Level 140 mmol/L (133-145); Triglycerides 71 mg/dL; Very Low Density Lipoprotein 14 mg/dL (5-40); cholesterol:hdl ratio screen 2.33
== END | disposition home or self-care (01) ==
PROVIDERS: PCP Family Medicine; Referring Provider Family Medicine; Visit Provider Family Medicine
DX: E78.5 Hyperlipidemia, unspecified (principal); I10 Essential (primary) hypertension
CPT/HCPCS: 36415; 80048; 80061; 82570; 84156; 84443; 84450; 84460

== ENCOUNTER → 2025-07-01 | Outpatient (CLI) | payer OTHER, SELFPAY | END | disposition home or self-care (01) | LOC: OPBD 10:11 | PROVIDERS: PCP Family Medicine | DX: Z13.820 Encounter for screening for osteoporosis (principal); Z78.0 Asymptomatic menopausal state; Z12.31 Encounter for screening mammogram for malignant neoplasm of breast | CPT/HCPCS: 77063; 77067; 77080 ==